=== PATIENT | male | born 1985 | race Caucasian/White ===

== ENCOUNTER 2019-01-24 20:42 | Inpatient (IN) | payer SELFPAY ==
[2019-01-24 21:20] VITALS: BMI 23.5
--- NOTE | 2019-01-24 21:37 | HP ---
COWS - Scale Resting Pulse: 1= [place] 81-100 Sweatin= Chills/Flushing Restless Observation: 1= Difficult to Sit Still Pupil Size: 0= Normal to Room Light Bone or Joint Aches: 1= Mild Discomfort Runny Nose/ Eye Tearin= Runny Nose/Eyes GI Upset > 30mins: 2= Nausea/Diarrhea Tremor Observation: 1= Tremor [place], Not Seen Yawning Observation: 1= 1-2x During Session Anxiety or Irritability: 2=Irritable/Anxious Goose Flesh Skin: 0=Smooth Skin COWS Score: 12 CIWA Score Nausea/Vomitin Muscle Tremors: 2 Anxiety: 2 Agitation: 0-Normal Activity Paroxysmal Sweats: 2 Orientation: 0-Oriented Tacttile Disturbances: 1-Very Mild Itch/Numbness Auditory Disturbances: 1-Very Mild Visual Disturbances: 1-Very Mild Sensitivity Headache: 3-Moderate CIWA-Ar Total Score: 14 - Admission Criteria [facility]ASAS Guidelines: Admission for Medically Managed Detox: Requires at least one of the followin. CIWA greater than 12 2. Seizures within the past 24 hours 3. Delirium tremens within the past 24 hours 4. Hallucinations within the past 24 hours 5. Acute intervention needed for co occurring medical disorder 6. Acute intervention needed for co occurring psychiatric disorder 7. Severe withdrawal that cannot be handled at a lower level of care (continued vomiting, continued diarrhea, abnormal vital signs) requiring intravenous medication and/or fluids 8. Patient presents the following: CIWA greater than 12 Admission Criteria Met: Admission criteria met Admission ROS [facility] Chief Complaint: alcohol, benzo and opioid withdrawal symptoms Allergies/Adverse Reactions: Allergies Allergy/AdvReac Type Severity Reaction Status Date / Time Penicillins AdvReac Rash Verified 01/24/19 21:10 History of Present Illness: Patient is a 33 yo male with hx of of alcohol, benzo and opioid intravenous dependence is here seeking inpatient detox d/t withdrawal symptoms. Last detox 2015, reports 10 months sobriety since detox and relapsed soon after. Reports no hx of MAT. PMHX: denies Psych: anxiety Denies SI/HI Reports overdose x 6 with last episode about two years ago Reports hx of withdrawal seizure with last episode three years ago Exam Limitations: No Limitations - Ebola screening Have you traveled outside of the country in the last 21 days: No (N) Have you had contact with anyone from an Ebola affected area: No Do you have a fever: No - Review of Systems Constitutional: Chills, Loss of Appetite, Changes in sleep, Unexplained wgt Loss EENT: reports: Nose Congestion Cardiac: reports: No Symptoms Reported GI: reports: Nausea, Poor Appetite, Poor Fluid Intake, Abdominal cramping : reports: No Symptoms Reported Musculoskeletal: reports: Back Pain, Muscle Pain Integumentary: reports: No Symptoms Reported Neuro: reports: Headache Endocrine: reports: No Symptoms Reported Hematology: reports: No Symptoms Reported Psychiatric: reports: Orientated x3, Anxious Other Systems: Reviewed and Negative Patient History - Patient Medical History Hx Anemia: No Hx Asthma: No Hx Chronic Obstructive Pulmonary Disease (COPD): No Hx Cancer: No Hx Cardiac Disorders: No Hx Congestive Heart Failure: No Hx Hypertension: No Hx Hypercholesterolemia: No Hx Pacemaker: No HX Cerebrovascular Accident: No Hx Seizures: No Hx Dementia: No Hx Diabetes: No Hx Gastrointestinal Disorders: Yes (GERD) Hx Liver Disease: No Hx Genitourinary Disorders: No Hx Sexually Transmitted Disorders: No Hx Renal Disease (ESRD): No Hx Thyroid Disease: No Hx Human Immunodeficiency Virus (HIV): No Hx Hepatitis C: No Hx Depression: No Hx Suicide Attempt: Yes (2005- PILL OVER DOSE) Hx Bipolar Disorder: No Hx Schizophrenia: No - Patient Surgical History Past Surgical History: Yes Other Surgical History: PLATE IN FACE Anesthesia Reaction: No - PPD History Previous Implant?: No Documented Results: Negative w/o proof Date: 02/22/16 - Smoking Cessation Smoking history: Current every day smoker Have you smoked in the past 12 months: Yes Aproximately how many cigarettes per day: 20 Cigars Per Day: 0 Hx Chewing Tobacco Use: No Initiated information on smoking cessation: Yes 'Breaking Loose' booklet given: 01/24/19 - Substance & Tx. History Hx Alcohol Use: Yes Hx Substance Use: Yes Substance Use Type: Alcohol, Heroin, Tranquilizers Hx Substance Use Treatment: Yes (last detox [facility] 2015) - Substances abused Heroin Substance route: Injection Frequency: Daily Amount used: 2 bundles Age of first use: 20 Date of last use: 01/23/19 Alcohol Substance route: Oral Frequency: Daily Amount used: 2-3 pints of vodka Age of first use: 12 Date of last use: 01/24/19 Alprazolam (Xanax) Substance route: Oral Frequency: Daily Amount used: 4mg Age of first use: 17 Date of last use: 01/23/19 Benzodiazepine (Klonopin) Substance route: Oral Frequency: Daily Amount used: 4-6mg Age of first use: 20 Date of last use: 01/23/19 Admission Physical Exam [facility] - Vital Signs Vital Signs: Vital Signs - 24 hr 01/24/19 01/24/19 21:05 21:28 Temperature 98.5 F 98.5 F Pulse Rate 86 86 Respiratory 18 18 Rate Blood Pressure 127/76 127/76 - Physical General Appearance: Yes: Disheveled, Mild Distress, Thin, Sweating HEENTM: Yes: EOMI, Hearing grossly Normal, Normal ENT Inspection, Normocephalic , Normal Voice, NEPTALI, Pharynx Normal, Tm's normal, Other (cheilitis) Respiratory: Yes: Chest Non-Tender, Lungs Clear, Normal Breath Sounds, No Respiratory Distress, No Accessory Muscle Use Neck: Yes: Within Normal Limits Breast: Yes: Breast Exam Deferred Cardiology: Yes: Regular Rhythm, Regular Rate Abdominal: Yes: Normal Bowel Sounds, Non Tender, Flat, Soft Genitourinary: Yes: Within Normal Limits Back: Yes: Normal Inspection Musculoskeletal: Yes: full range of Motion, Gait Steady, Pelvis Stable Extremities: Yes: Normal Capillary Refill, Normal Inspection, Normal Range of Motion, Non-Tender Neurological: Yes: gauge controller II-XII NML intact, Fully Oriented, Alert, Motor Strength 5/5, Normal Mood/Affect, Normal Response, Depressed Affect Integumentary: Yes: Normal Color, Warm, Diaphoresis Lymphatic: Yes: Within Normal Limits - Diagnostic (1) Alcohol dependence with uncomplicated withdrawal Current Visit: Yes Status: Acute (2) Opioid dependence with withdrawal Current Visit: Yes Status: Acute (3) Nicotine dependence Current Visit: Yes Status: Chronic Qualifiers: Nicotine product type: cigarettes Substance use status: uncomplicated Qualified Code(s): F17.210 - Nicotine dependence, cigarettes, uncomplicated Cleared for Admission [facility] - Detox or Rehab [facility] Level of Care: Medically Managed Detox Regimen/Protocol: Methadone/Librium Breathalyzer - Breathalyzer Breathalyzer: 0.066 Urine Drug Screen - Test Device Lot number: [id number] Expiration date: 10/23/20 - Control Is test valid?: Yes - Results Drug screen NEGATIVE: No Urine drug screen results: THC-Marijuana, MET-Methamphetamine, AMP-Amphetamines , FEN-Fentanyl Inpatient Rehab Admission - Rehab Decision to Admit Inpatient rehab admission?: No
[2019-01-24] MEDS ORDERED: MENTHOL/PHENOL 1 EACH UD MM PRN (21:38)
[2019-01-24] MEDS ORDERED: MAGNESIUM CITRATE 300 ML BOTTLE PO PRN (21:38)
[2019-01-24] MEDS ORDERED: chlordiazePOXIDE HCL 25 MG CAPSULE PO PRN ×2 (21:38→23:17)
[2019-01-24] MEDS ORDERED: METHADONE HCL 10 MG TABLET (FOR DETOX USE ONLY) PO ONE ×2 (21:38→23:17)
[2019-01-24] MEDS ORDERED: ACETAMINOPHEN 325 MG TABLET (FP) PO PRN ×2 (21:38)
[2019-01-24] MEDS ORDERED: BISMUTH SUBSALICYLATE 524 MG/30 ML UD PO PRN (21:38)
[2019-01-24] MEDS ORDERED: cloNIDine HCL 0.1 MG TABLET PO PRN (21:38)
[2019-01-24] MEDS ORDERED: MAG HYDROX/AL HYDROX/SIMETH 30 ML UNIT-DOSE CUP PO PRN (21:38)
[2019-01-24] MEDS ORDERED: MAGNESIUM HYDROX 2400MG/30ML ORAL SUSPENSION 30 ML CUP PO PRN (21:38)
[2019-01-24] MEDS ORDERED: chlordiazePOXIDE HCL 25 MG CAPSULE PO SCH (23:00)
[2019-01-24] MEDS ORDERED: NALOXONE HCL 0.4 MG/ML VIAL IM PRN (23:17)
[2019-01-24] MEDS: chlordiazePOXIDE HCL 25 MG CAPSULE PO SCH (23:39)
[2019-01-24] MEDS: THIAMINE HCL 100 MG TABLET (FP) PO SCH (23:39)
[2019-01-25] MEDS: chlordiazePOXIDE HCL 25 MG CAPSULE PO SCH ×4 (05:36→22:05)
[2019-01-25] MEDS: NICOTINE POLACRILEX 4 MG GUM BUC PRN ×4 (06:49→17:27)
[2019-01-25] MEDS ORDERED: METHADONE HCL 5 MG TABLET (FOR DETOX USE ONLY) ONE (09:26)
[2019-01-25] MEDS ORDERED: METHADONE HCL 10 MG TABLET (FOR DETOX USE ONLY) ONE (09:26)
[2019-01-25 09:55] LABS: HEMATOCRIT 43.7 % (35.4-49); HEMOGLOBIN 15.2 GM/dL (11.7-16.9); MCH 30.5 pg (25.7-33.7); MCHC 34.8 g/dl (32.0-35.9); MEAN CELL VOLUME 87.5 fl (80-96); RDW 12.2 % (11.9-15.9); WHITE BLOOD COUNT 5.5 K/mm3 (4.0-10.0)
[2019-01-25] MEDS ORDERED: METHADONE (DETOX) 20 MG, METHADONE (DETOX) 5 MG PO ONE ×2 (10:00)
[2019-01-25 10:18] LABS: PLATELET COUNT 244 K/MM3 (134-434)
[2019-01-25 10:20] LABS: ALBUMIN 3.8 g/dl (3.4-5.0); BILIRUBIN,TOTAL 0.4 mg/dL (0.2-1); BLOOD UREA NITROGEN 12.1 mg/dL (7-18); CALCIUM 8.6 mg/dL (8.5-10.1); CREATININE 0.9 mg/dL (0.55-1.3); POTASSIUM 4.1 mmol/L (3.5-5.1); TOT PROT 7.2 g/dl (6.4-8.2)
[2019-01-25] MEDS: METHOCARBAMOL 500 MG TABLET PO PRN ×2 (10:34→17:26)
[2019-01-25] MEDS: NICOTINE 21 MG/24 HOURS TOPICAL PATCH TD SCH (10:35)
[2019-01-25] MEDS: PRENATAL VITAMINS W/ FOLIC ACID TABLET (FP) PO SCH (10:35)
[2019-01-25] MEDS: IBUPROFEN 400 MG TABLET (FP) PO PRN (13:32)
--- NOTE | 2019-01-25 13:56 | EKG ---
Test Reason : Blood Pressure : / mmHG Vent. Rate : 075 BPM Atrial Rate : 075 BPM P-R Int : 146 ms QRS Dur : 118 ms QT Int : 408 ms P-R-T Axes : 051 022 066 degrees QTc Int : 455 ms NORMAL SINUS RHYTHM INCOMPLETE RIGHT BUNDLE BRANCH BLOCK NO PREVIOUS ECGS AVAILABLE Confirmed by TINY STOKES MD ([id number]) on 01/25/2019 1:56:22 PM Referred By: Gigi Stewart Confirmed By:TINY STOKES MD
--- NOTE | 2019-01-25 17:31 | PN ---
S CIWA - CIWA Score Nausea/Vomitin Muscle Tremors: None Anxiety: 2 Agitation: 0-Normal Activity Paroxysmal Sweats: 3 Orientation: 0-Oriented Tacttile Disturbances: 0-None Auditory Disturbances: 2-Mild Harshness/Frighten Visual Disturbances: 2-Mild Sensitivity Headache: 0-None Present CIWA-Ar Total Score: 12 BHS COWS - Scale Resting Pulse: 0= [place] 80 or Below Sweatin= Chills/Flushing Restless Observation: 0= Sits Still Pupil Size: 0= Normal to Room Light Bone or Joint Aches: 2= Severe Diffuse Aches Runny Nose/ Eye Tearin= None GI Upset > 30mins: 2= Nausea/Diarrhea Tremor Observation of Outstretched Hands: 0= None Yawning Observation: 1= 1-2x During Session Anxiety or Irritability: 2=Irritable/Anxious Goose Flesh Skin: 3=Piloerection COWS Score: 11 S Progress Note (SOAP) Subjective: Body Aches, Sweating, Fatigue, Nausea, Stomach Cramping, Diarrhea. Objective: PATIENT A & O X 3, OBSERVED AMBULATING ON UNIT UNASSISTED. IN NO ACUTE DISTRESS. 01/25/19 17:30 Vital Signs Temperature 97.7 F 01/25/19 13:07 Pulse Rate 58 L 01/25/19 13:07 Respiratory Rate 18 01/25/19 13:07 Blood Pressure 127/84 01/25/19 13:07 O2 Sat by Pulse Oximetry (%) Laboratory Tests 01/25/19 01/25/19 01/25/19 07:00 07:00 07:00 WBC 5.5 RBC 5.00 Hgb 15.2 Hct 43.7 MCV 87.5 MCH 30.5 MCHC 34.8 RDW 12.2 Plt Count 244 MPV 8.0 Sodium 142 Potassium 4.1 Chloride 105 Carbon Dioxide 30 Anion Gap 6 L BUN 12.1 Creatinine 0.9 Est GFR (CKD-EPI)AfAm 129.61 Est GFR (CKD-EPI)NonAf 111.83 Random Glucose 67 L Calcium 8.6 Total Bilirubin 0.4 AST 13 L ALT 19 Alkaline Phosphatase 103 Total Protein 7.2 Albumin 3.8 RPR Titer Nonreactive LABS NOTED. RESULTS OF DETOX ADMISSION QFT /TB TEST PENDING. 01/25/19 17:30 Assessment: 01/25/19 17:30 WITHDRAWAL SYMPTOMS. Plan: CONTINUE DETOX. INCREASE DAILY PO WATER INTAKE. PRN PEPTO-BISMOL PO FOR DIARRHEA.
[2019-01-25] MEDS: MELATONIN 5 MG TABLETS PO PRN (22:05)
[2019-01-25] MEDS: THIAMINE HCL 100 MG TABLET (FP) PO SCH (22:05)
[2019-01-26] MEDS ORDERED: chlordiazePOXIDE HCL 25 MG CAPSULE PO SCH (05:00)
[2019-01-26] MEDS: chlordiazePOXIDE HCL 25 MG CAPSULE PO SCH ×4 (05:16→22:39)
[2019-01-26] MEDS: IBUPROFEN 400 MG TABLET (FP) PO PRN ×3 (05:19→22:41)
[2019-01-26] MEDS: METHOCARBAMOL 500 MG TABLET PO PRN ×3 (05:19→22:41)
[2019-01-26] MEDS ORDERED: METHADONE HCL 10 MG TABLET (FOR DETOX USE ONLY) PO ONE ×2 (10:00)
[2019-01-26] MEDS: PRENATAL VITAMINS W/ FOLIC ACID TABLET (FP) PO SCH (10:33)
[2019-01-26] MEDS: NICOTINE 21 MG/24 HOURS TOPICAL PATCH TD SCH (10:33)
[2019-01-26 11:09] LABS: URINE APPEARANCE CLEAR; URINE BILIRUBIN NEGATIVE (NEGATIVE); URINE COLOR YELLOW; URINE GLUCOSE (UA) NEGATIVE (NEGATIVE); URINE KETONE NEGATIVE (NEGATIVE); URINE LEUK ESTERASE NEGATIVE (NEGATIVE); URINE NITRITE NEGATIVE (NEGATIVE); URINE PROTEIN NEGATIVE (NEGATIVE); URINE UROBILINOGEN 0.2 mg/dL (0.2-1.0)
--- NOTE | 2019-01-26 12:46 | PN ---
[facility] CIWA - CIWA Score Nausea/Vomitin-No Nausea/No Vomiting Muscle Tremors: None Anxiety: 3 Agitation: 1-Slight > Activity Paroxysmal Sweats: 3 Orientation: 0-Oriented Tacttile Disturbances: 1-Very Mild Itch/Numbness Auditory Disturbances: 0-None Visual Disturbances: 2-Mild Sensitivity Headache: 0-None Present CIWA-Ar Total Score: 10 BHS COWS - Scale Resting Pulse: 0= [place] 80 or Below Sweatin= Chills/Flushing Restless Observation: 0= Sits Still Pupil Size: 0= Normal to Room Light Bone or Joint Aches: 2= Severe Diffuse Aches Runny Nose/ Eye Tearin= None GI Upset > 30mins: 1= Stomach Cramp Tremor Observation of Outstretched Hands: 0= None Yawning Observation: 1= 1-2x During Session Anxiety or Irritability: 2=Irritable/Anxious Goose Flesh Skin: 3=Piloerection COWS Score: 10 S Progress Note (SOAP) Subjective: Fatigue, Body Aches, Sweating, Stomach Cramping. Objective: PATIENT A & O X 3, OBSERVED AMBULATING ON UNIT UNASSISTED. IN NO ACUTE DISTRESS. 01/26/19 12:46 Vital Signs Temperature 97.1 F L 01/26/19 09:30 Pulse Rate 50 L 01/26/19 09:30 Respiratory Rate 20 01/26/19 09:30 Blood Pressure 120/77 01/26/19 09:30 O2 Sat by Pulse Oximetry (%) Laboratory Tests 01/25/19 01/25/19 01/25/19 07:00 07:00 07:00 WBC 5.5 RBC 5.00 Hgb 15.2 Hct 43.7 MCV 87.5 MCH 30.5 MCHC 34.8 RDW 12.2 Plt Count 244 MPV 8.0 Sodium 142 Potassium 4.1 Chloride 105 Carbon Dioxide 30 Anion Gap 6 L BUN 12.1 Creatinine 0.9 Est GFR (CKD-EPI)AfAm 129.61 Est GFR (CKD-EPI)NonAf 111.83 Random Glucose 67 L Calcium 8.6 Total Bilirubin 0.4 AST 13 L ALT 19 Alkaline Phosphatase 103 Total Protein 7.2 Albumin 3.8 Urine Color Urine Appearance Urine pH Ur Specific [place] Urine Protein Urine Glucose (UA) Urine Ketones Urine Blood Urine Nitrite Urine Bilirubin Urine Urobilinogen Ur Leukocyte Esterase RPR Titer Nonreactive HIV-1 Antibody HIV Ag/Ab Interpret HIV-2 Antibody HIV 1&2 Ag/Ab, 4th Gen HIV 1&2 Antibody Screen HIV 1&2 Ab Final Interp HIV P24 Antigen 01/26/19 01/26/19 01/26/19 05:40 05:40 09:43 WBC RBC Hgb Hct MCV MCH MCHC RDW Plt Count MPV Sodium Potassium Chloride Carbon Dioxide Anion Gap BUN Creatinine Est GFR (CKD-EPI)AfAm Est GFR (CKD-EPI)NonAf Random Glucose Calcium Total Bilirubin AST ALT Alkaline Phosphatase Total Protein Albumin Urine Color Yellow Urine Appearance Clear Urine pH 7.0 D Ur Specific [place] 1.022 Urine Protein Negative Urine Glucose (UA) Negative Urine Ketones Negative Urine Blood Negative Urine Nitrite Negative Urine Bilirubin Negative Urine Urobilinogen 0.2 Ur Leukocyte Esterase Negative RPR Titer HIV-1 Antibody Cancelled HIV Ag/Ab Interpret Cancelled HIV-2 Antibody Cancelled HIV 1&2 Ag/Ab, 4th Gen Cancelled HIV 1&2 Antibody Screen Cancelled HIV 1&2 Ab Final Interp Cancelled HIV P24 Antigen Cancelled LABS NOTED. RESULTS OF DETOX ADMISSION QFT /TB TEST AND OF HIV AB TEST PENDING. 01/26/19 12:48 Assessment: 01/26/19 12:48 WITHDRAWAL SYMPTOMS. Plan: CONTINUE DETOX. INCREASE DAILY PO WATER INTAKE.
[2019-01-26] MEDS: NICOTINE POLACRILEX 4 MG GUM BUC PRN ×2 (17:30→20:11)
[2019-01-26] MEDS: THIAMINE HCL 100 MG TABLET (FP) PO SCH (22:38)
[2019-01-26] MEDS: MELATONIN 5 MG TABLETS PO PRN (22:39)
[2019-01-27] MEDS ORDERED: chlordiazePOXIDE HCL 10 MG CAPSULE PO PRN ×2
[2019-01-27] MEDS ORDERED: chlordiazePOXIDE HCL 10 MG CAPSULE PO SCH (05:00)
[2019-01-27] MEDS: IBUPROFEN 400 MG TABLET (FP) PO PRN ×3 (05:23→22:20)
[2019-01-27] MEDS: chlordiazePOXIDE HCL 10 MG CAPSULE PO SCH ×4 (05:23→22:20)
[2019-01-27] MEDS: METHOCARBAMOL 500 MG TABLET PO PRN ×2 (05:24→16:47)
[2019-01-27] MEDS: NICOTINE POLACRILEX 4 MG GUM BUC PRN ×4 (05:27→19:26)
[2019-01-27] MEDS ORDERED: METHADONE HCL 10 MG TABLET (FOR DETOX USE ONLY) ONE (08:46)
[2019-01-27] MEDS ORDERED: METHADONE HCL 5 MG TABLET (FOR DETOX USE ONLY) ONE (08:47)
[2019-01-27] MEDS ORDERED: METHADONE (DETOX) 10 MG, METHADONE (DETOX) 5 MG PO ONE ×2 (10:00)
[2019-01-27] MEDS: PRENATAL VITAMINS W/ FOLIC ACID TABLET (FP) PO SCH (10:35)
[2019-01-27] MEDS: NICOTINE 21 MG/24 HOURS TOPICAL PATCH TD SCH (10:36)
--- NOTE | 2019-01-27 11:17 | PN ---
S CIWA - CIWA Score Nausea/Vomitin-Mild Nausea/No Vomiting Muscle Tremors: 3 Anxiety: 2 Agitation: 2 Paroxysmal Sweats: 1-Minimal Palms Moist Orientation: 0-Oriented Tacttile Disturbances: 0-None Auditory Disturbances: 0-None Visual Disturbances: 0-None Headache: 0-None Present CIWA-Ar Total Score: 9 BHS COWS - Scale Resting Pulse: 0= [place] 80 or Below Sweatin= Chills/Flushing Restless Observation: 0= Sits Still Pupil Size: 0= Normal to Room Light Bone or Joint Aches: 1= Mild Discomfort Runny Nose/ Eye Tearin= Nasal Congestion GI Upset > 30mins: 1= Stomach Cramp Tremor Observation of Outstretched Hands: 2= Slight Tremor Visible Yawning Observation: 1= 1-2x During Session Anxiety or Irritability: 2=Irritable/Anxious Goose Flesh Skin: 0=Smooth Skin COWS Score: 9 S Progress Note (SOAP) Subjective: 33 years old male admitted on 01/24/19 for alcohol benzo and opiate withdrawal sx management sweat tremor loose stool encourage peptobismouth Objective: 01/27/19 11:16 Vital Signs Temperature 97.0 F L 01/27/19 09:24 Pulse Rate 45 L 01/27/19 09:24 Respiratory Rate 18 01/27/19 09:24 Blood Pressure 129/88 01/27/19 09:24 O2 Sat by Pulse Oximetry (%) Laboratory Last Values WBC 5.5 K/mm3 (4.0-10.0) 01/25/19 07:00 RBC 5.00 M/mm3 (4.00-5.60) 01/25/19 07:00 Hgb 15.2 GM/dL (11.7-16.9) 01/25/19 07:00 Hct 43.7 % (35.4-49) 01/25/19 07:00 MCV 87.5 fl (80-96) 01/25/19 07:00 MCH 30.5 pg (25.7-33.7) 01/25/19 07:00 MCHC 34.8 g/dl (32.0-35.9) 01/25/19 07:00 RDW 12.2 % (11.9-15.9) 01/25/19 07:00 Plt Count 244 K/MM3 (134-434) 01/25/19 07:00 MPV 8.0 fl (7.5-11.1) 01/25/19 07:00 Sodium 142 mmol/L (136-145) 01/25/19 07:00 Potassium 4.1 mmol/L (3.5-5.1) 01/25/19 07:00 Chloride 105 mmol/L (98-107) 01/25/19 07:00 Carbon Dioxide 30 mmol/L (21-32) 01/25/19 07:00 Anion Gap 6 MMOL/L (8-16) L 01/25/19 07:00 BUN 12.1 mg/dL (7-18) 01/25/19 07:00 Creatinine 0.9 mg/dL (0.55-1.3) 01/25/19 07:00 Est GFR (CKD-EPI)AfAm 129.61 01/25/19 07:00 Est GFR (CKD-EPI)NonAf 111.83 01/25/19 07:00 Random Glucose 67 mg/dL (74-106) L 01/25/19 07:00 Calcium 8.6 mg/dL (8.5-10.1) 01/25/19 07:00 Total Bilirubin 0.4 mg/dL (0.2-1) 01/25/19 07:00 AST 13 U/L (15-37) L 01/25/19 07:00 ALT 19 U/L (13-61) 01/25/19 07:00 Alkaline Phosphatase 103 U/L (45-117) 01/25/19 07:00 Total Protein 7.2 g/dl (6.4-8.2) 01/25/19 07:00 Albumin 3.8 g/dl (3.4-5.0) 01/25/19 07:00 Urine Color Yellow 01/26/19 09:43 Urine Appearance Clear 01/26/19 09:43 Urine pH 7.0 (5.0-8.0) D 01/26/19 09:43 Ur Specific [place] 1.022 (1.010-1.035) 01/26/19 09:43 Urine Protein Negative (NEGATIVE) 01/26/19 09:43 Urine Glucose (UA) Negative (NEGATIVE) 01/26/19 09:43 Urine Ketones Negative (NEGATIVE) 01/26/19 09:43 Urine Blood Negative (NEGATIVE) 01/26/19 09:43 Urine Nitrite Negative (NEGATIVE) 01/26/19 09:43 Urine Bilirubin Negative (NEGATIVE) 01/26/19 09:43 Urine Urobilinogen 0.2 mg/dL (0.2-1.0) 01/26/19 09:43 Ur Leukocyte Esterase Negative (NEGATIVE) 01/26/19 09:43 RPR Titer Nonreactive (NONREACTIVE) 01/25/19 07:00 Hep C Ab Diagnostic 0.1 s/co ratio (0.0-0.9) 01/26/19 05:40 HIV-1 Antibody Cancelled 01/26/19 05:40 HIV Ag/Ab Interpret Cancelled 01/26/19 05:40 HIV-2 Antibody Cancelled 01/26/19 05:40 HIV 1&2 Ag/Ab, 4th Gen Non reactive (Non Reactive) 01/26/19 11:37 HIV 1&2 Antibody Screen Cancelled 01/26/19 05:40 HIV 1&2 Ab Final Interp Cancelled 01/26/19 05:40 HIV P24 Antigen Cancelled 01/26/19 05:40 lab noted Assessment: 01/27/19 11:17 alcohol benzo opiate withdrawal sx Plan: continue alcohol benzo opiate detox
[2019-01-27] MEDS: THIAMINE HCL 100 MG TABLET (FP) PO SCH (22:20)
[2019-01-27] MEDS: MELATONIN 5 MG TABLETS PO PRN (22:21)
[2019-01-28] MEDS ORDERED: chlordiazePOXIDE HCL 10 MG CAPSULE PO SCH (05:00)
[2019-01-28] MEDS: chlordiazePOXIDE HCL 10 MG CAPSULE PO SCH ×2 (05:47→16:50)
[2019-01-28] MEDS: NICOTINE POLACRILEX 4 MG GUM BUC PRN ×3 (05:49→18:14)
[2019-01-28] MEDS: IBUPROFEN 400 MG TABLET (FP) PO PRN ×3 (05:49→23:25)
[2019-01-28] MEDS: METHOCARBAMOL 500 MG TABLET PO PRN ×3 (05:49→23:26)
[2019-01-28] MEDS ORDERED: METHADONE HCL 10 MG TABLET (FOR DETOX USE ONLY) PO ONE ×2 (10:00)
--- NOTE | 2019-01-28 10:19 | PN ---
[facility] CIWA - CIWA Score Nausea/Vomitin-No Nausea/No Vomiting Muscle Tremors: 2 Anxiety: 2 Agitation: 2 Paroxysmal Sweats: No Perspiration Orientation: 0-Oriented Tacttile Disturbances: 0-None Auditory Disturbances: 0-None Visual Disturbances: 0-None Headache: 0-None Present CIWA-Ar Total Score: 6 BHS COWS - Scale Resting Pulse: 1= [place] 81-100 Sweatin= No chills or Flushing Restless Observation: 0= Sits Still Pupil Size: 0= Normal to Room Light Bone or Joint Aches: 1= Mild Discomfort Runny Nose/ Eye Tearin= Nasal Congestion GI Upset > 30mins: 0= None Tremor Observation of Outstretched Hands: 1= Tremor [place], Not Seen Yawning Observation: 1= 1-2x During Session Anxiety or Irritability: 1=Feels Anxious/Irritable Goose Flesh Skin: 0=Smooth Skin COWS Score: 6 S Progress Note (SOAP) Subjective: doing well with librium and methadone detox regimenb less tremor mild body aches discuss medication assisted treatment program Objective: 01/28/19 10:20 Vital Signs Temperature 98.2 F 01/28/19 09:31 Pulse Rate 86 01/28/19 09:31 Respiratory Rate 18 01/28/19 09:31 Blood Pressure 129/85 01/28/19 09:31 O2 Sat by Pulse Oximetry (%) Laboratory Last Values WBC 5.5 K/mm3 (4.0-10.0) 01/25/19 07:00 RBC 5.00 M/mm3 (4.00-5.60) 01/25/19 07:00 Hgb 15.2 GM/dL (11.7-16.9) 01/25/19 07:00 Hct 43.7 % (35.4-49) 01/25/19 07:00 MCV 87.5 fl (80-96) 01/25/19 07:00 MCH 30.5 pg (25.7-33.7) 01/25/19 07:00 MCHC 34.8 g/dl (32.0-35.9) 01/25/19 07:00 RDW 12.2 % (11.9-15.9) 01/25/19 07:00 Plt Count 244 K/MM3 (134-434) 01/25/19 07:00 MPV 8.0 fl (7.5-11.1) 01/25/19 07:00 Sodium 142 mmol/L (136-145) 01/25/19 07:00 Potassium 4.1 mmol/L (3.5-5.1) 01/25/19 07:00 Chloride 105 mmol/L (98-107) 01/25/19 07:00 Carbon Dioxide 30 mmol/L (21-32) 01/25/19 07:00 Anion Gap 6 MMOL/L (8-16) L 01/25/19 07:00 BUN 12.1 mg/dL (7-18) 01/25/19 07:00 Creatinine 0.9 mg/dL (0.55-1.3) 01/25/19 07:00 Est GFR (CKD-EPI)AfAm 129.61 01/25/19 07:00 Est GFR (CKD-EPI)NonAf 111.83 01/25/19 07:00 Random Glucose 67 mg/dL (74-106) L 01/25/19 07:00 Calcium 8.6 mg/dL (8.5-10.1) 01/25/19 07:00 Total Bilirubin 0.4 mg/dL (0.2-1) 01/25/19 07:00 AST 13 U/L (15-37) L 01/25/19 07:00 ALT 19 U/L (13-61) 01/25/19 07:00 Alkaline Phosphatase 103 U/L (45-117) 01/25/19 07:00 Total Protein 7.2 g/dl (6.4-8.2) 01/25/19 07:00 Albumin 3.8 g/dl (3.4-5.0) 01/25/19 07:00 Urine Color Yellow 01/26/19 09:43 Urine Appearance Clear 01/26/19 09:43 Urine pH 7.0 (5.0-8.0) D 01/26/19 09:43 Ur Specific [place] 1.022 (1.010-1.035) 01/26/19 09:43 Urine Protein Negative (NEGATIVE) 01/26/19 09:43 Urine Glucose (UA) Negative (NEGATIVE) 01/26/19 09:43 Urine Ketones Negative (NEGATIVE) 01/26/19 09:43 Urine Blood Negative (NEGATIVE) 01/26/19 09:43 Urine Nitrite Negative (NEGATIVE) 01/26/19 09:43 Urine Bilirubin Negative (NEGATIVE) 01/26/19 09:43 Urine Urobilinogen 0.2 mg/dL (0.2-1.0) 01/26/19 09:43 Ur Leukocyte Esterase Negative (NEGATIVE) 01/26/19 09:43 RPR Titer Nonreactive (NONREACTIVE) 01/25/19 07:00 Hep C Ab Diagnostic 0.1 s/co ratio (0.0-0.9) 01/26/19 05:40 HIV-1 Antibody Cancelled 01/26/19 05:40 HIV Ag/Ab Interpret Cancelled 01/26/19 05:40 HIV-2 Antibody Cancelled 01/26/19 05:40 HIV 1&2 Ag/Ab, 4th Gen Non reactive (Non Reactive) 01/26/19 11:37 HIV 1&2 Antibody Screen Cancelled 01/26/19 05:40 HIV 1&2 Ab Final Interp Cancelled 01/26/19 05:40 HIV P24 Antigen Cancelled 01/26/19 05:40 lab noted Assessment: 01/28/19 10:22 alcohol benzo and opiate withdrawal sx Plan: continue alcohol benzo opiate detox
[2019-01-28] MEDS: PRENATAL VITAMINS W/ FOLIC ACID TABLET (FP) PO SCH (10:22)
[2019-01-28] MEDS: NICOTINE 21 MG/24 HOURS TOPICAL PATCH TD SCH (10:22)
[2019-01-28 21:47] VITALS: TEMP 97.2
[2019-01-28] MEDS: MELATONIN 5 MG TABLETS PO PRN (22:07)
[2019-01-28] MEDS: THIAMINE HCL 100 MG TABLET (FP) PO SCH (22:07)
[2019-01-29] MEDS ORDERED: chlordiazePOXIDE HCL 10 MG CAPSULE PO ONE ×2 (05:00)
[2019-01-29] MEDS: METHOCARBAMOL 500 MG TABLET PO PRN (05:45)
[2019-01-29] MEDS: NICOTINE POLACRILEX 4 MG GUM BUC PRN (05:45)
[2019-01-29] MEDS ORDERED: METHADONE HCL 5 MG TABLET (FOR DETOX USE ONLY) PO ONE ×2 (06:00)
[2019-01-29 06:16] VITALS: BP 115/69; PULSE 60
--- NOTE | 2019-01-29 13:49 | DS ---
[facility] Detox Discharge Summary Admission Date: 01/24/19 Discharge Date: 01/29/19 - History Present History: Alcohol Dependence, Opioid Dependence, Sedative Dependence Additional Comments: 33 years old male admitted on 01/24/19 for acute alcohol benzo and opiate withdrawal sx management doing well with librium and methadone detox regimen no complication throughout the detox stay alert oriented x 3 steady gait coherent speech denies dizziness no shortness of breathe aftercare [facility] Pertinent Past History: encourage the patient bringing in medication list and lab result to aftercare for follow up - Physical Exam Results Vital Signs: Vital Signs Temperature 97.2 F L 01/29/19 06:15 Pulse Rate 60 01/29/19 06:15 Respiratory Rate 18 01/29/19 06:15 Blood Pressure 115/69 01/29/19 06:15 O2 Sat by Pulse Oximetry (%) Pertinent Admission Physical Exam Findings: alcohol benzo and opiate withdrawal sx Laboratory Last Values WBC 5.5 K/mm3 (4.0-10.0) 01/25/19 07:00 RBC 5.00 M/mm3 (4.00-5.60) 01/25/19 07:00 Hgb 15.2 GM/dL (11.7-16.9) 01/25/19 07:00 Hct 43.7 % (35.4-49) 01/25/19 07:00 MCV 87.5 fl (80-96) 01/25/19 07:00 MCH 30.5 pg (25.7-33.7) 01/25/19 07:00 MCHC 34.8 g/dl (32.0-35.9) 01/25/19 07:00 RDW 12.2 % (11.9-15.9) 01/25/19 07:00 Plt Count 244 K/MM3 (134-434) 01/25/19 07:00 MPV 8.0 fl (7.5-11.1) 01/25/19 07:00 Sodium 142 mmol/L (136-145) 01/25/19 07:00 Potassium 4.1 mmol/L (3.5-5.1) 01/25/19 07:00 Chloride 105 mmol/L (98-107) 01/25/19 07:00 Carbon Dioxide 30 mmol/L (21-32) 01/25/19 07:00 Anion Gap 6 MMOL/L (8-16) L 01/25/19 07:00 BUN 12.1 mg/dL (7-18) 01/25/19 07:00 Creatinine 0.9 mg/dL (0.55-1.3) 01/25/19 07:00 Est GFR (CKD-EPI)AfAm 129.61 01/25/19 07:00 Est GFR (CKD-EPI)NonAf 111.83 01/25/19 07:00 Random Glucose 67 mg/dL (74-106) L 01/25/19 07:00 Calcium 8.6 mg/dL (8.5-10.1) 01/25/19 07:00 Total Bilirubin 0.4 mg/dL (0.2-1) 01/25/19 07:00 AST 13 U/L (15-37) L 01/25/19 07:00 ALT 19 U/L (13-61) 01/25/19 07:00 Alkaline Phosphatase 103 U/L (45-117) 01/25/19 07:00 Total Protein 7.2 g/dl (6.4-8.2) 01/25/19 07:00 Albumin 3.8 g/dl (3.4-5.0) 01/25/19 07:00 Urine Color Yellow 01/26/19 09:43 Urine Appearance Clear 01/26/19 09:43 Urine pH 7.0 (5.0-8.0) D 01/26/19 09:43 Ur Specific [place] 1.022 (1.010-1.035) 01/26/19 09:43 Urine Protein Negative (NEGATIVE) 01/26/19 09:43 Urine Glucose (UA) Negative (NEGATIVE) 01/26/19 09:43 Urine Ketones Negative (NEGATIVE) 01/26/19 09:43 Urine Blood Negative (NEGATIVE) 01/26/19 09:43 Urine Nitrite Negative (NEGATIVE) 01/26/19 09:43 Urine Bilirubin Negative (NEGATIVE) 01/26/19 09:43 Urine Urobilinogen 0.2 mg/dL (0.2-1.0) 01/26/19 09:43 Ur Leukocyte Esterase Negative (NEGATIVE) 01/26/19 09:43 RPR Titer Nonreactive (NONREACTIVE) 01/25/19 07:00 Hep C Ab Diagnostic 0.1 s/co ratio (0.0-0.9) 01/26/19 05:40 HIV-1 Antibody Cancelled 01/26/19 05:40 HIV Ag/Ab Interpret Cancelled 01/26/19 05:40 HIV-2 Antibody Cancelled 01/26/19 05:40 HIV 1&2 Ag/Ab, 4th Gen Non reactive (Non Reactive) 01/26/19 11:37 HIV 1&2 Antibody Screen Cancelled 01/26/19 05:40 HIV 1&2 Ab Final Interp Cancelled 01/26/19 05:40 HIV P24 Antigen Cancelled 01/26/19 05:40 TB (QFT) Incubation (.) 01/25/19 07:00 TB Test (QFT) Nil 0.04 IU/mL (.) 01/25/19 07:00 TB Test (QFT) Mitogen 2.51 IU/mL (.) 01/25/19 07:00 TB Test (QFT) Antigen 0.08 IU/mL (.) 01/25/19 07:00 TB Test (QFT) Negative (Negative) 01/25/19 07:00 TB Positive Criteria (.) 01/25/19 07:00 lab noted - Treatment Hospital Course: Detox Protocol Followed, Detoxed Safely, Responded well, Discharged Condition Good, Rehab Referral Accepted Patient has Accepted a Rehab Referral to: [facility] - Medication Discharge Medications: Ambulatory Orders Naloxone HCl [Narcan] 4 mg NS ASDIR PRN #1 spray 01/28/19 - Diagnosis (1) Alcohol dependence with uncomplicated withdrawal Status: Acute (2) Opioid dependence with withdrawal Status: Acute (3) Sedative, hypnotic or anxiolytic dependence with withdrawal, uncomplicated Status: Acute (4) Nicotine dependence Status: Acute Qualifiers: Nicotine product type: cigarettes Substance use status: in withdrawal Qualified Code(s): F17.213 - Nicotine dependence, cigarettes, with withdrawal - AMA Did Patient Leave Against Medical Advice: No
== END 2019-01-29 08:55 | disposition home or self-care (01) | DRG 773 ==
LOC: YASAS 20:42 → Y3N 22:38
PROVIDERS: ADMIT Surgery; ATTEND Surgery
PROC: HZ2ZZZZ Detoxification Services for Substance Abuse Treatment (ICD-10-PCS; principal; 2019-01-24)
DX: F10.230 Alcohol dependence with withdrawal, uncomplicated (principal); F11.23 Opioid dependence with withdrawal; F13.230 Sedative, hypnotic or anxiolytic dependence with withdrawal, uncomplicated; F17.210 Nicotine dependence, cigarettes, uncomplicated; F41.9 Anxiety disorder, unspecified; K21.9 Gastro-esophageal reflux disease without esophagitis; Z88.0 Allergy status to penicillin; Z59.0 Homelessness
CPT/HCPCS: 36415; 80053; 81003; 85027; 86480; 86593; 86803; 87389; 93005; 93010